=== PATIENT | female | born 1955 | race Caucasian/White ===

== ENCOUNTER 2017-04-30 11:38 | Day surgery (SDC) | payer OTHER ==
[2017-04-30] MEDS ORDERED: Dexamethasone 4 mg/ml Vial ONE (13:53)
[2017-04-30] MEDS ORDERED: Fentanyl 100 MCG/2 ML VIAL ONE ×4 (14:41→17:04)
[2017-04-30] MEDS ORDERED: Propofol 200 MG/20 ML VIAL ONE (14:57)
[2017-04-30] MEDS ORDERED: Lidocaine 1% PF 5 ML VIAL ONE (14:57)
[2017-04-30] MEDS ORDERED: Dexamethasone 20 MG/5 ML VIAL ONE (14:57)
[2017-04-30] MEDS ORDERED: Ondansetron HCl/PF 4 MG/2 ML Vial ONE (14:57)
[2017-04-30] MEDS ORDERED: Bupivacaine PF 0.5% 30 ML VIAL ONE (15:16)
[2017-04-30] MEDS ORDERED: HYDROcodone/Acetaminophen 5/325 mg Tablet PO PRN (16:05)
[2017-04-30] MEDS ORDERED: Ondansetron ODT 4 MG TAB PO PRN (16:05)
[2017-04-30] MEDS ORDERED: Zolpidem Tartrate 5 MG TAB PO PRN (16:05)
--- NOTE | 2017-04-30 16:29 | RAD ---
INTRAOPERATIVE FLUOROSCOPY: Comparison: None. History: Right tibial fracture. FINDINGS: Intraprocedure fluoroscopy was provided for Dr. Short. Two images demonstrate internal fixation hardware at the level of the right proximal tibia. Exposure: 28.8 seconds, 0.92 mGy*cm\S\2 IMPRESSION: Fluoroscopy as above. POS: [facility]
[2017-04-30] MEDS ORDERED: Promethazine HCl 25 MG/ML VIAL SLOW IVP PRN (17:09)
[2017-04-30] MEDS ORDERED: Promethazine HCl 25 MG/ML VIAL IM PRN (17:09)
[2017-04-30] MEDS ORDERED: Ondansetron HCl/PF 4 MG/2 ML Vial IVP PRN ×2 (17:09→20:28)
[2017-04-30] MEDS: Sodium Chloride 0.9% 1,000 ML IV SCH (20:26)
[2017-04-30] MEDS: Acetaminophen 325 MG TAB PO PRN (21:07)
[2017-04-30] MEDS: Docusate 100 MG CAP PO SCH (21:22)
--- NOTE | 2017-04-30 22:52 | OP ---
DATE OF PROCEDURE: 04/30/2017 OPERATION: Open reduction and internal fixation of right tibial plateau fracture, lateral split and depressed. PREOPERATIVE DIAGNOSIS: Right proximal tibial plateau fracture. POSTOPERATIVE DIAGNOSIS: Right proximal tibial plateau fracture. COMPLICATIONS: None. ESTIMATED BLOOD LOSS: 50 mL. SURGEON: Ke Short M.D. BUILDING ILLUMINATING ENGINEER: Mariano Palacios PA-C INDICATIONS: Ms. Curtis is a 61-year-old female who has fracture of her lateral tibial plateau. S he has a depressed and displaced fracture. She has been indicated for open reduction and internal f ixation to restore anatomic alignment of the knee and promote healing. Risks have been reviewed. S rachel has a risk for post-traumatic arthritis, further displacement, nonunion and others. She is at el evated risk of wound complication given her rheumatoid arthritis and appropriate medications for aziza t disease. DESCRIPTION OF OPERATION: Ms. Curtis was identified in the preoperative holding area. Her correct extremity was marked. She was carried to the operating room. She was positioned supine. General anesthesia was induced. The right lower extremity was prepped and draped in sterile fashion. We began the procedure with anterolateral incision over the proximal tibia. We dissected down throu gh the subcutaneous tissue to the fascia which was incised. We then exposed the underlying lateral tibial plateau. We elevated the most lateral aspect of the tibial plateau and retracted this. This exposed the underlying articular surface with the significantly depressed and comminuted fractured surface. We elevated this with a hemostat as well as a [place] elevator. We held this into position with K-wire fixation. We then filled the void left by the depressed fragments with cancellous bone chips, these were impacted using a tamp. We took x-ray images confirming reduction. We then closed down the lateral tibia with a reduction clamp. Next, we placed a Synthes proximal tibia precontour ed plate. Multiple screws were placed distally and proximally locking the plate to the bone holding our reduction. At this point, we took x-ray images confirming hardware placement. We thoroughly i rrigated with copious lavage. We then closed with 0 Vicryl suture, 2-0 Vicryl suture and sri fo r the skin. A sterile dressing was applied. The patient was taken to the recovery room in good con dition without complication. IMPLANTS: Synthes 3.5 mm proximal tibial locking plate and locking screws were used.
[2017-05-01 00:52] VITALS: BMI 27.1
[2017-05-01] MEDS: Sodium Chloride 0.9% 1,000 ML IV SCH ×3 (05:21→20:48)
[2017-05-01] MEDS: Enoxaparin Sodium 40 MG/0.4 ML SYRINGE SC SCH (09:08)
[2017-05-01] MEDS: Docusate 100 MG CAP PO SCH ×2 (09:09→20:48)
[2017-05-01] MEDS: Acetaminophen 325 MG TAB PO PRN (17:47)
[2017-05-02] MEDS: Acetaminophen 325 MG TAB PO PRN ×2 (03:41→08:28)
[2017-05-02] MEDS: Sodium Chloride 0.9% 1,000 ML IV SCH (08:27)
[2017-05-02] MEDS: Enoxaparin Sodium 40 MG/0.4 ML SYRINGE SC SCH (08:28)
[2017-05-02] MEDS: Docusate 100 MG CAP PO SCH (08:28)
[2017-05-02 08:43] VITALS: TEMP 98.6
[2017-05-02] MEDS ORDERED: HYDROcodone/Acetaminophen 5/325 mg Tablet PO PRN (09:40)
[2017-05-02 12:03] VITALS: BP 115/71
== END 2017-05-02 12:07 ==
LOC: SDC 11:38 → SURG A 16:05 → SDC 05-02 12:07
PROVIDERS: ATTEND Orthopaedic Surgery
PROC: 0QSG04Z Reposition Right Tibia with Internal Fixation Device, Open Approach (ICD-10-PCS; principal; 2017-05-02)
DX: S82.141A Displaced bicondylar fracture of right tibia, initial encounter for closed fracture (principal); M06.9 Rheumatoid arthritis, unspecified; F32.9 Major depressive disorder, single episode, unspecified; X50.9XXA Other and unspecified overexertion or strenuous movements or postures, initial encounter; Y99.0 Civilian activity done for income or pay; Z79.01 Long term (current) use of anticoagulants; Z79.52 Long term (current) use of systemic steroids; Z79.899 Other long term (current) drug therapy; Z88.1 Allergy status to other antibiotic agents; Z88.8 Allergy status to other drugs, medicaments and biological substances; Z88.2 Allergy status to sulfonamides; Z91.041 Radiographic dye allergy status; Z90.710 Acquired absence of both cervix and uterus; Z98.890 Other specified postprocedural states; Z87.440 Personal history of urinary (tract) infections
CPT/HCPCS: 76001; 96374; C1713; G8978-GP-CK; G8979-GP-CI; G8987-GO-CK; G8988-GO-CI; J1100; J1650; J2001; J2270; J2405; J2704; J3010; S0020

== ENCOUNTER 2017-07-31 08:00 | Outpatient (CLI) | payer OTHER | END 2017-07-31 08:01 | disposition home or self-care (01) | LOC: BICMAMMO 08:00 | PROVIDERS: ATTEND Student in an Organized Health Care Education/Training Program | DX: Z12.31 Encounter for screening mammogram for malignant neoplasm of breast (principal); Z13.820 Encounter for screening for osteoporosis; M81.0 Age-related osteoporosis without current pathological fracture; M85.88 Other specified disorders of bone density and structure, other site | CPT/HCPCS: 77067; 77080; G0202 ==

== ENCOUNTER 2018-06-02 09:23 | Outpatient (CLI) | payer OTHER ==
--- NOTE | 2018-06-02 12:00 | RAD ---
RADIOGRAPH CHEST 2 VIEWS: Date: 06/02/18 HISTORY: 62-year-old female with dyspnea. FINDINGS: There is no air space density, pulmonary edema, pleural effusion, pneumothorax, or cardiomegaly. Ther e is a levoscoliosis of the lumbar spine, and a mild, compensatory dextroscoliosis of the thoracic sp ine. IMPRESSION: 1. No acute cardiopulmonary findings. 2. S-shaped scoliosis. jn [] POS: [facility]
== END 2018-06-02 09:24 | disposition home or self-care (01) ==
LOC: RAD 09:23
PROVIDERS: ATTEND Internal Medicine Critical Care Medicine
DX: R06.00 Dyspnea, unspecified (principal); M41.9 Scoliosis, unspecified
CPT/HCPCS: 71046

== ENCOUNTER 2018-08-11 08:13 | Outpatient (CLI) | payer OTHER | END 2018-08-11 08:14 | disposition home or self-care (01) | LOC: BICMAMMO 08:13 | PROVIDERS: ATTEND Family Medicine | DX: Z12.31 Encounter for screening mammogram for malignant neoplasm of breast (principal) | CPT/HCPCS: 77063; 77067 ==

== ENCOUNTER 2019-04-14 14:03 | Outpatient (CLI) | payer OTHER ==
[~2019-04-14 14:03] MED LIST: ISOVUE-370 76%-LOCM 1 ML ONE
[2019-04-14 14:34] LABS: Estimated GFR-MDRD - POC Greater than 90
--- NOTE | 2019-04-14 15:55 | CT ---
ABDOMEN CT WITH CONTRAST: 04/14/19 COMPARISON: 08/26/17. INDICATION: Hepatic cyst. FINDINGS: Redemonstration of numerous cysts occupying each hepatic lobe. The prior dominant cyst near the hepat ic dome posteriorly within the right lobe measuring 5.2 cm transverse on prior exam now measures appr oximately 6.3 cm in similar location on the current exam. No new solid hepatic lesion is demonstrated . There is redemonstration of cholelithiasis. The spleen, pancreas, kidneys, and adrenal glands are s table in appearance, without significant abnormality. No free air of the abdomen. No portal vein gas . There is mild vascular calcification. No significant pathology at the lung bases. Levoscoliosis of the upper lumbar spine is present. IMPRESSION: 1. Redemonstration of multiple hepatic cysts. The dominant lesion has mildly increased in volume . Features of the hepatic cysts remain simple by CT appearance. 2. Redemonstration of calcified gallstones. 3. Additional details as described above. POS: [facility]
== END 2019-04-14 14:04 | disposition home or self-care (01) ==
LOC: BICCT 14:03
PROVIDERS: ATTEND Internal Medicine Gastroenterology
DX: K76.89 Other specified diseases of liver (principal); K80.20 Calculus of gallbladder without cholecystitis without obstruction; I70.90 Unspecified atherosclerosis; M41.9 Scoliosis, unspecified
CPT/HCPCS: 74160; 82565; Q9966

== ENCOUNTER 2019-06-15 08:08 | Outpatient (CLI) | payer OTHER ==
--- NOTE | 2019-06-15 09:40 | RAD ---
2 VIEW CHEST: Date: 06/15/19 COMPARISON: 06/02/18. INDICATION: Dyspnea. FINDINGS: There is elevation of the left hemidiaphragm. Mild interstitial prominence of each lung is similar ap pearing. Cardiac silhouette is within normal limits of size. There is S-shaped spinal curvature. IMPRESSION: 1. Diffuse interstitial opacities of each lung, stable appearing. 2. S-shaped scoliosis with elevation of left hemidiaphragm. POS: [facility]
== END 2019-06-15 08:09 | disposition home or self-care (01) ==
LOC: RAD 08:08
PROVIDERS: ATTEND Internal Medicine Critical Care Medicine
DX: R06.00 Dyspnea, unspecified (principal); M41.9 Scoliosis, unspecified; R91.8 Other nonspecific abnormal finding of lung field; J98.6 Disorders of diaphragm
CPT/HCPCS: 71046

== ENCOUNTER 2019-10-12 09:47 | Outpatient (CLI) | payer OTHER ==
--- NOTE | 2019-10-12 10:42 | MMO ---
Bilateral MAMMO Bilat Screen [facility]. CLINICAL HISTORY: Patient is 64 years old and is seen for screening. The patient has no family history of breast cancer. The patient has no personal history of cancer. VIEWS: The views performed were: bilateral craniocaudal with tomosynthesis and bilateral mediolateral oblique with tomosynthesis. FILMS COMPARED: The present examination has been compared to prior imaging studies performed at [facility] on 07/31/2017 and 08/11/2018, and at [facility] on 03/29/2015 and 04/16/2016. This study has been interpreted with the assistance of computer-aided detection. MAMMOGRAM FINDINGS: There are scattered fibroglandular densities. Finding 1: There are stable benign appearing calcifications seen in both breasts. Finding 2: There are stable benign appearing densities seen in both breasts. There are no suspicious masses, suspicious calcifications, or new areas of architectural distortion. IMPRESSION: THERE IS NO MAMMOGRAPHIC EVIDENCE OF MALIGNANCY. A ROUTINE FOLLOW-UP MAMMOGRAM IN 1 YEAR IS RECOMMENDED. THE RESULTS OF THIS EXAM WERE SENT TO THE PATIENT. ACR BI-RADS Category 2 - Benign finding MAMMOGRAPHY NOTE: 1. A negative mammogram report should not delay a biopsy if a dominant of clinically suspicious mass is present. 2. Approximately 10% to 15% of breast cancers are not detected by mammography. 3. Adenosis and dense breasts may obscure an underlying neoplasm. Reported by: LETICIA CHEEMA MD Electonically Signed: [id number]
== END 2019-10-12 09:48 | disposition home or self-care (01) ==
LOC: BICMAMMO 09:47
PROVIDERS: ATTEND Family Medicine
DX: Z12.31 Encounter for screening mammogram for malignant neoplasm of breast (principal)
CPT/HCPCS: 77063; 77067

== ENCOUNTER 2020-04-12 13:34 | Outpatient (CLI) | payer OTHER ==
--- NOTE | 2020-04-12 13:56 | BD ---
EXAM: Bone densitometry using DEXA HISTORY: 64 yo female. Screening for postmenopausal osteoporosis FINDINGS: L1--bone mineral density 0.763 g/sq cm; T score -2.1 ; Z score -0.5 L2--bone mineral density 0.829 g/sq cm; T score -1.8 ; Z score -0.1 L3--bone mineral density 0.798 g/sq cm; T score -2.6 ; Z score -0.8 L4--bone mineral density 0.778 g/sq cm; T score -2.6 ; Z score -0.7 Total L1-L4--bone mineral density 0.791 g/sq cm; T score -2.3 ; Z score -0.6 Left femoral neck--bone mineral density0.612; T score -2.1 ; Z score -0.7 Total proximal left femur--bone mineral density 0.813; T score -1.1 ; Z score 0.1 There has been an interval improvement of 4.8% in the BMD of the lumbar spine and a improvement of 5.5% in the BMD of the proximal femur since the previous study of 04/14/2015. The 10 year fracture risk for a major osteoporotic fracture is 23% and for a hip fracture is 4.3%. IMPRESSION: Osteopenia
== END 2020-04-12 13:35 | disposition home or self-care (01) ==
LOC: BICMAMMO 13:34
PROVIDERS: ATTEND Family Medicine
DX: Z13.820 Encounter for screening for osteoporosis (principal); M85.89 Other specified disorders of bone density and structure, multiple sites; Z78.0 Asymptomatic menopausal state
CPT/HCPCS: 77080

== ENCOUNTER 2020-08-22 09:36 | Outpatient (CLI) | payer OTHER ==
--- NOTE | 2020-08-22 11:45 | MRI ---
EXAM: MRI Abdomen WO Con DATE: 08/22/2020 10:50 AM INDICATION: 64-year-old female with history of multiple hepatic cysts COMPARISON: CT of the abdomen with contrast dated April 14, 2019 FINDING: The patient declined the postcontrast MR examination after full consultation by the MR margo mendes. As seen on the comparison CT are multiple prominent cysts within the right and left hepatic lobe. The largest cyst within segment 7 of the right hepatic lobe now measures 7 x 6.8 cm were previously measured 6.8 x 6.4 cm. The largest cyst within the left hepatic lobe in the region of segment 3 measu res 3.5 cm were previously it measured 4 cm. No new suspicious cystic lesion is identified. There are multiple small gallstones within the gallbladder. No intrahepatic or extrahepatic biliary ductal dilatation is evident. The pancreas and adrenal glands are normal appearing. The kidneys are normal appearing. The spleen is normal-appearing. No free fluid is evident. There is thoracolumbar scoliosis . IMPRESSION: 1. Largely stable hepatic cysts. The largest cyst within the right hepatic lobe has mildly enlarged f rom a comparison CT evaluation in 2018; however, the largest cyst within the left hepatic lobe has decreased in size. Similar changes are seen with additional cysts within the right and left hepatic l obe. 2. Cholelithiasis.
== END 2020-08-22 09:37 | disposition home or self-care (01) ==
LOC: BICMRI 09:36
PROVIDERS: ATTEND Internal Medicine Gastroenterology
DX: K76.89 Other specified diseases of liver (principal); I38 Endocarditis, valve unspecified; M06.9 Rheumatoid arthritis, unspecified; K80.20 Calculus of gallbladder without cholecystitis without obstruction
CPT/HCPCS: 74181

== ENCOUNTER 2020-10-18 11:05 | Outpatient (CLI) | payer OTHER | END 2020-10-18 11:06 | disposition home or self-care (01) | LOC: BICMAMMO 11:05 | PROVIDERS: ATTEND Family Medicine | DX: Z12.31 Encounter for screening mammogram for malignant neoplasm of breast (principal) | CPT/HCPCS: 77063; 77067 ==

== ENCOUNTER 2021-11-27 08:16 | Outpatient (CLI) | payer BC | END 2021-11-27 08:17 | disposition home or self-care (01) | LOC: MRI 08:16 | PROVIDERS: ATTEND Physician Assistant Medical | DX: K76.89 Other specified diseases of liver (principal); K80.20 Calculus of gallbladder without cholecystitis without obstruction | CPT/HCPCS: 74183 ==

== ENCOUNTER 2022-04-17 08:23 | Outpatient (CLI) | payer BC | END 2022-04-17 08:24 | disposition home or self-care (01) | LOC: BICMAMMO 08:23 | PROVIDERS: ATTEND Family Medicine | DX: Z12.31 Encounter for screening mammogram for malignant neoplasm of breast (principal); Z13.820 Encounter for screening for osteoporosis; N95.9 Unspecified menopausal and perimenopausal disorder; M85.89 Other specified disorders of bone density and structure, multiple sites | CPT/HCPCS: 77063; 77067; 77080 ==

== ENCOUNTER 2023-06-24 12:53 | Outpatient (CLI) | payer BC | END 2023-06-24 12:54 | disposition home or self-care (01) | LOC: BICMAMMO 12:53 | PROVIDERS: ATTEND Family Medicine | DX: Z12.31 Encounter for screening mammogram for malignant neoplasm of breast (principal) | CPT/HCPCS: 77063; 77067 ==

== ENCOUNTER 2024-07-07 11:18 | Outpatient (CLI) | payer BC | END 2024-07-07 11:19 | disposition home or self-care (01) | LOC: BICMAMMO 11:18 | PROVIDERS: ATTEND Family Medicine | DX: Z12.31 Encounter for screening mammogram for malignant neoplasm of breast (principal) | CPT/HCPCS: 77063; 77067 ==

== ENCOUNTER 2025-07-13 14:12 | Outpatient (CLI) | payer BC | END 2025-07-13 14:13 | disposition home or self-care (01) | LOC: BICMAMMO 14:12 | PROVIDERS: ATTEND Family Medicine | DX: Z12.31 Encounter for screening mammogram for malignant neoplasm of breast (principal) | CPT/HCPCS: 77063; 77067 ==